=== PATIENT | female | born 1995 | race Hispanic/Latino ===

== ENCOUNTER 2017-05-01 00:14 | Emergency (ER) | payer MEDICAID, OTHER ==
[~2017-05-01 00:14] MED LIST: ACET1TAB12 PO; IBUP-2070 PO; IRON-10 PO; PREN1TAB80 PO
== END 2017-05-01 02:38 | disposition home or self-care (01) ==
LOC: EDH 00:14
DX: J06.9 Acute upper respiratory infection, unspecified (principal); R51 Headache; R09.81 Nasal congestion
CPT/HCPCS: 99281

== ENCOUNTER 2019-06-01 15:17 | Emergency (ER) | payer OTHER ==
[2019-06-01] MEDS ORDERED: DEXAMETHASONE SOD PHOSPHATE 10MG/ML 1ML VIAL ONE (15:39)
[2019-06-01] MEDS ORDERED: DiphenhydrAMINE HCL 50 MG/ML VIAL ONE (15:40)
== END 2019-06-01 15:50 | disposition home or self-care (01) ==
LOC: EDH 15:17
DX: L50.0 Allergic urticaria (principal); Z72.0 Tobacco use
CPT/HCPCS: 96372 ×2; 99284; J1100; J1200